=== PATIENT | male | born 1960 | race Hispanic/Latino ===

== ENCOUNTER 2017-10-21 18:30 | Emergency (ER) | payer OTHER ==
[2017-10-21 19:40] LABS: #Basophils 0.1 thou/uL (0.0-0.2); #Eosinphils 0.1 thou/uL (0.0-0.7); #Lymphocytes 1.6 thou/uL (1.20-3.40); #Monocytes 0.3 thou/uL (0.11-0.59); #Neutrophils 3.7 thou/uL (1.40-6.50); %Basophils 1.3 % (0.0-1.0); %Eosinophils 1.1 % (0.0-10.0); %Lymphocytes 27.8 % (21.0-51.0); %Monocytes 4.6 % (0.0-10.0); %Neutrophils 65.2 % (42.0-75.0); Hemoglobin 15.1 g/dL (14.0-18.0); Mean Corpuscular HGB CONC 35.4 g/dL (32.0-36.0); Mean Corpuscular Hemoglobin 31.5 pg (27.0-31.0); Mean Corpuscular Volume 89.1 fL (78.0-98.0); Mean Platelet Volume 9.2 fL (7.4-10.4); Platelet Count 167 thou/uL (130-400); RBC Distribution Width 11.8 % (11.5-14.5); Red Blood Cell (RBC) Count 4.78 mill/uL (4.70-6.10); White Blood Cell (WBC) Count 5.7 thou/uL (4.8-10.8)
[2017-10-21 20:04] LABS: ALT (SGPT) 17 U/L (8-55); AST (SGOT) 18 U/L (5-34); Albumin 4.5 g/dL (3.5-5.0); Alkaline Phosphatase 73 U/L (40-150); Anion Gap 11 mmol/L (10-20); BUN (Urea Nitrogen) 14 mg/dL (8.4-25.7); Bilirubin, Total 0.5 mg/dL (0.2-1.2); CK (CPK) 150 U/L (30-200); Calc. Creatinine Clearance 0 mL/min (70-130); Calcium 9.1 mg/dL (7.8-10.44); Carbon Dioxide 26 mmol/L (22-29); Chloride 107 mmol/L (98-107); Estimated GFR-MDRD 74; Globulin 2.1 g/dL (2.4-3.5); Glucose 95 mg/dL (70-105); Potassium 4.4 mmol/L (3.5-5.1); Protein, Total 6.6 g/dL (6.0-8.3); Sodium 140 mmol/L (136-145)
[2017-10-21 20:09] LABS: CKMB 1.5 ng/mL (0-6.6); Troponin I Less than 0.010 ng/mL (< 0.028)
--- NOTE | 2017-10-21 20:42 | RAD ---
PORTABLE AP CHEST X-RAY: 10/21/2017 HISTORY: Chest pain. FINDINGS: The cardiac silhouette is magnified by projection but stable, compared to prior exam. The pulmonary vasculature is within normal limits. The lungs remain clear. There has been no interval change from the prior exam. IMPRESSION: No acute cardiopulmonary process. POS: [facility]
== END 2017-10-21 20:00 | disposition left against medical advice (07) ==
LOC: ERS 18:30
DX: Z53.21 Procedure and treatment not carried out due to patient leaving prior to being seen by health care provider (principal)
CPT/HCPCS: 36415; 71045; 80053; 82550; 82553; 84484; 85025

== ENCOUNTER 2017-10-21 20:41 | Emergency (ER) | payer OTHER | END 2017-10-21 22:09 | disposition home or self-care (01) | LOC: SCSER 20:41 | DX: I65.29 Occlusion and stenosis of unspecified carotid artery (principal); E04.1 Nontoxic single thyroid nodule; N20.0 Calculus of kidney; K76.0 Fatty (change of) liver, not elsewhere classified | CPT/HCPCS: 99283 ==

== ENCOUNTER 2017-11-11 13:21 | Outpatient (CLI) | payer OTHER ==
[~2017-11-11 13:21] MED LIST: Iopamidol 370 76% 100 ML VIAL ONE
== END 2017-11-11 13:22 | disposition home or self-care (01) ==
LOC: BICCT 13:21
PROVIDERS: ATTEND Family Medicine
DX: I65.21 Occlusion and stenosis of right carotid artery (principal)
CPT/HCPCS: 70498

== ENCOUNTER 2018-08-15 08:56 | Day surgery (SDC) | payer OTHER ==
[2018-08-14 11:46] VITALS: BMI 32.2
--- NOTE | 2018-08-15 00:12 | HP ---
HISTORY OF PRESENT ILLNESS: This is a 57-year-old male _comes in for a screening colonoscopy. The patient has no specific GI symptoms. Bowel movements are regular. No abdominal pain. No hematochezia. ALLERGIES: NONE. MEDICAL ILLNESSES: Hyperlipidemia. SOCIAL HISTORY: The patient does not smoke or drink alcohol. PHYSICAL EXAMINATION: VITAL SIGNS: Pulse is 70, blood pressure 130/80. HEENT: Conjunctivae clear. NECK: Supple. No adenitis or thyromegaly noted. CARDIOVASCULAR: First and second heart sounds heard. LUNGS: Clear to auscultation. ABDOMEN: Soft. No organomegaly. No tenderness. No masses. ADMITTING DIAGNOSIS: A 57-year-old male, comes for a colonoscopy for colon cancer screening. Job ID: [id number] MTDD
[2018-08-15] MEDS ORDERED: Midazolam HCl 2 mg/2 ml Vial ONE (09:25)
[2018-08-15] MEDS ORDERED: PROPOFOL 200 MG/20 ML VIAL ONE (16:35)
[2018-08-15] MEDS ORDERED: Lidocaine 1% PF 5 ML VIAL ONE (16:35)
--- NOTE | 2018-08-15 16:39 | OP ---
DATE OF PROCEDURE: 08/15/2018 PROCEDURE PERFORMED: Colonoscopy. PREOPERATIVE DIAGNOSIS: A 57-year-old male undergoing colonoscopy for colon cancer screening. POSTOPERATIVE DIAGNOSES: 1. Scattered diverticula all the way to the hepatic flexure. 2. Fecal coating in the mucosa of the right colon, washed out. DESCRIPTION OF PROCEDURE: The patient was placed on his left lateral position and was given sedation by Anesthesia Department. A rectal exam was done before the scope was advanced into the rectum. No lesions felt on rectal exam. A [employer]ax video colonoscope was introduced into the rectum and advanced all the way to the cecum. The prep was reasonably good except for some fecal coating over the right colon. Water was easily irrigated and washed out. Withdrawal of scope from the cecum into the ascending colon, no pathology. The hepatic flexure, transverse colon, splenic flexure, descending colon, sigmoid colon showed mild scattered diverticula. Retroflexion of scope in the rectum showed no pathology. DISCHARGE PLANNING: This is a 57-year-old male, came for a colonoscopy for colon cancer screening, underwent colonoscopy and was found to have scattered diverticular disease from sigmoid to hepatic flexure. He did well postprocedure and is being discharged home. DISCHARGE INSTRUCTIONS: 1. The patient is advised to call me if he develops any abdominal pain or hematochezia. 2. High-fiber diet. 3. Repeat colonoscopy in 10 years as he is low risk for colon cancer. Job ID: [id number]
== END 2018-08-15 10:49 | disposition home or self-care (01) ==
LOC: SDC 08:56
PROVIDERS: ATTEND Internal Medicine Gastroenterology
PROC: 0DJD8ZZ Inspection of Lower Intestinal Tract, Via Natural or Artificial Opening Endoscopic (ICD-10-PCS; principal; 2018-08-15)
DX: Z12.11 Encounter for screening for malignant neoplasm of colon (principal); K57.30 Diverticulosis of large intestine without perforation or abscess without bleeding; E78.5 Hyperlipidemia, unspecified; Z79.82 Long term (current) use of aspirin; Z79.899 Other long term (current) drug therapy
CPT/HCPCS: J2001; J2250; J2704

== ENCOUNTER 2020-03-27 19:00 | Outpatient (CLI) | payer OTHER | END 2020-03-27 19:01 | disposition home or self-care (01) | LOC: SLEEPLAB 19:00 | PROVIDERS: ATTEND Family Medicine | DX: G47.33 Obstructive sleep apnea (adult) (pediatric) (principal); R53.83 Other fatigue; R51.9 Headache, unspecified; R06.83 Snoring; E66.9 Obesity, unspecified; G47.10 Hypersomnia, unspecified; G47.00 Insomnia, unspecified; Z68.32 Body mass index [BMI] 32.0-32.9, adult; G47.52 REM sleep behavior disorder | CPT/HCPCS: 95810 ==

== ENCOUNTER 2020-04-24 19:30 | Outpatient (CLI) | payer OTHER | END 2020-04-24 19:31 | disposition home or self-care (01) | LOC: SLEEPLAB 19:30 | PROVIDERS: ATTEND Family Medicine | DX: G47.33 Obstructive sleep apnea (adult) (pediatric) (principal); R51.9 Headache, unspecified; R53.83 Other fatigue; R06.83 Snoring; G47.10 Hypersomnia, unspecified; E66.9 Obesity, unspecified; G47.52 REM sleep behavior disorder; Z68.32 Body mass index [BMI] 32.0-32.9, adult | CPT/HCPCS: 95811 ==

== ENCOUNTER 2022-10-27 12:21 | Observation (INO) | payer OTHER ==
[2022-10-27] MEDS ORDERED: Aspirin Chewable 81 MG TAB ONE (12:59)
[2022-10-27] MEDS ORDERED: Nitroglycerin 2% Ointment 1 INCH/1 GM Packet ONE (12:59)
[2022-10-27 13:19] LABS: #Eosinphils 0.1 thou/uL (0.0-0.7); #Monocytes 0.3 thou/uL (0.11-0.59); #Neutrophils 3.8 thou/uL (1.40-6.50); %Basophils 0.3 % (0.0-1.0); %Eosinophils 1.5 % (0.0-10.0); %Monocytes 5.7 % (0.0-10.0); %Neutrophils 64.3 % (42.0-75.0); Hemoglobin 15.6 g/dL (14.0-18.0); Mean Corpuscular HGB CONC 34.6 g/dL (32.0-36.0); Mean Corpuscular Hemoglobin 30.7 pg (27.0-31.0); Mean Corpuscular Volume 88.8 fl (78.0-98.0); Mean Platelet Volume 11.5 fL (7.4-10.4); Platelet Count 170 10x3/uL (130-400); RBC Distribution Width 12.7 % (11.5-14.5); Red Blood Cell (RBC) Count 5.08 mill/uL (4.70-6.10)
[2022-10-27 13:44] LABS: ALT (SGPT) 18 U/L (8-55); AST (SGOT) 24 U/L (5-34); Albumin 4.6 g/dL (3.5-5.0); Alkaline Phosphatase 71 U/L (40-110); Anion Gap 14 mmol/L (10-20); BUN (Urea Nitrogen) 11 mg/dL (8.4-25.7); Bilirubin, Total 0.7 mg/dL (0.2-1.2); CK (CPK) 99 U/L (30-200); Calc. Creatinine Clearance 0 mL/min (70-130); Calcium 9.2 mg/dL (7.8-10.44); Carbon Dioxide 27 mmol/L (22-29); Chloride 104 mmol/L (98-107); Estimated GFR 81; Globulin 2.5 g/dL (2.4-3.5); Glucose 94 mg/dL (70-105); Lipase 26 U/L (8-78); Protein, Total 7.1 g/dL (6.0-8.3); Sodium 140 mmol/L (136-145)
[2022-10-27] MEDS ORDERED: HYDROcodone/Acetaminophen 5/325 mg Tablet PO PRN (14:19)
[2022-10-27] MEDS ORDERED: Acetaminophen 325 MG TAB PO PRN (14:19)
[2022-10-27 16:45] VITALS: BMI 29.9
[2022-10-27 16:56] LABS: Troponin I Less than 0.010 ng/mL (< 0.028)
[2022-10-27] MEDS ORDERED: Nitroglycerin 0.4 MG TAB (25 Tab Bottle) SL PRN (17:07)
[2022-10-27 19:38] LABS: Troponin I Less than 0.010 ng/mL (< 0.028)
[2022-10-27] MEDS ORDERED: Melatonin 3 MG TAB PO PRN (20:34)
[2022-10-27] MEDS ORDERED: Atorvastatin Calcium 40 MG TAB PO SCH (21:00)
[2022-10-28 05:56] LABS: Troponin I Less than 0.010 ng/mL (< 0.028)
[2022-10-28] MEDS ORDERED: Aspirin 81 mg Enteric Coated Tablet PO SCH (09:00)
[2022-10-28 12:08] VITALS: BP 122/79; TEMP 98.2
== END 2022-10-28 14:35 | disposition home or self-care (01) ==
LOC: ERS 12:21 → 2SW 16:00
PROVIDERS: ADMIT Internal Medicine; ATTEND Internal Medicine
DX: R07.89 Other chest pain (principal); E78.5 Hyperlipidemia, unspecified; R11.0 Nausea; Z79.82 Long term (current) use of aspirin; Z79.899 Other long term (current) drug therapy
CPT/HCPCS: 36415; 71045; 80053; 82550; 83690; 83880; 84484; 85025; 93005; 93017; 94760; G0378

== ENCOUNTER 2023-09-18 21:39 | Inpatient (IN) | payer OTHER ==
[~2023-09-18 21:39] MED LIST changes: -Iopamidol 370 76% 100 ML VIAL ONE; +Iopamidol-370 76% 500 ML MDV (1 ML CHARGE) ONE
[2023-09-18 22:33] LABS: #Basophils Less than 0.03 10x3/uL (0.0-0.2); %Basophils 0.3 % (0.0-1.0); %Eosinophils 1.6 % (0.0-10.0); %Lymphocytes 27.9 % (21.0-51.0); %Monocytes 7.2 % (0.0-10.0); %Neutrophils 62.7 % (42.0-75.0); Hematocrit 42.6 % (42.0-52.0); Hemoglobin 14.7 g/dL (14.0-18.0); Mean Corpuscular HGB CONC 34.5 g/dL (32.0-36.0); Mean Corpuscular Hemoglobin 30.4 pg (27.0-31.0); Mean Corpuscular Volume 88.2 fL (78.0-98.0); Mean Platelet Volume 11.9 fL (7.4-10.4); Platelet Count 170 10x3/uL (130-400); RBC Distribution Width 12.6 % (11.5-14.5); Red Blood Cell (RBC) Count 4.83 mill/uL (4.70-6.10)
[2023-09-18 22:51] LABS: ALT (SGPT) 17 U/L (8-55); AST (SGOT) 19 U/L (5-34); Albumin 3.9 g/dL (3.5-5.0); Alkaline Phosphatase 70 U/L (40-110); Anion Gap 14 mmol/L (10-20); BUN (Urea Nitrogen) 19 mg/dL (8.4-25.7); Bilirubin, Total 0.3 mg/dL (0.2-1.2); CK (CPK) 115 U/L (30-200); Calc. Creatinine Clearance 0 mL/min (70-130); Calcium 9.1 mg/dL (7.8-10.44); Carbon Dioxide 23 mmol/L (22-29); Chloride 106 mmol/L (98-107); Estimated GFR 65; Globulin 2.5 g/dL (2.4-3.5); Glucose 111 mg/dL (70-105); Lipase 20 U/L (8-78); Potassium 4.2 mmol/L (3.5-5.1); Protein, Total 6.4 g/dL (6.0-8.3); Sodium 139 mmol/L (136-145)
[2023-09-18 22:56] LABS: Troponin I 0.144 ng/mL (< 0.028)
[2023-09-18] MEDS ORDERED: Aspirin Chewable 81 MG TAB ONE (23:12)
[2023-09-19 00:48] LABS: Bacteria/HPF None Seen HPF (None Seen); Bilirubin Negative (Negative); Blood, Urine Negative (Negative); CAUTI Indications for Culture Pelvic or flank pain; Clarity Clear (Clear); Glucose, Urine (Dipstick) Normal (Negative); Ketone, Urine Negative (Negative); Leukocyte Negative Leu/uL (Negative); Nitrite Negative (Negative); Protein, Urine (Dipstick) Negative (Neg-Trace); RBC/HPF 0-3 HPF (0-3); Specific Gravity, Urine 1.017 (1.002-1.036); Squamous Epithelial None Seen HPF (0-3); Urobilinogen Normal mg/dL (Less than 2); WBC/HPF 0-3 HPF (0-3)
[2023-09-19 00:50] LABS: Urine Culture Reflex No No
[2023-09-19] MEDS ORDERED: hydrALAZINE 10 MG TAB ONE (01:01)
[2023-09-19] MEDS ORDERED: hydrALAZINE 25 MG TAB ONE (01:05)
[2023-09-19] MEDS ORDERED: Nitroglycerin 0.4 MG TAB (25 Tab Bottle) SL PRN (01:16)
[2023-09-19] MEDS ORDERED: Acetaminophen 650 MG Suppository PR PRN (01:16)
[2023-09-19 03:30] LABS: Critical Call Chem Troponin I NUR.LK7@0330; Troponin I 0.205 ng/mL (< 0.028)
[2023-09-19] MEDS ORDERED: Enoxaparin 100 MG (1 mL) SYRINGE ONE (04:24)
[2023-09-19] MEDS: Enoxaparin 100 MG (1 mL) SYRINGE SC SCH ×2 (04:39→18:02)
[2023-09-19 04:45] LABS: A1c 135.039 g/dL; Hb (HGBA1c) 4254.3542 umol/L; Hemoglobin A1c 5.1 % (4.0-6.0)
[2023-09-19] MEDS: Communication Order-Pharmacy FS SCH (04:45)
[2023-09-19 04:48] LABS: Anion Gap 13 mmol/L (10-20); BUN (Urea Nitrogen) 20 mg/dL (8.4-25.7); Calc. Creatinine Clearance 88 mL/min (70-130); Calcium 9.3 mg/dL (7.8-10.44); Carbon Dioxide 24 mmol/L (22-29); Cardiac Risk 3.6 (Less than 4.5); Chloride 108 mmol/L (98-107); Cholesterol 158 mg/dl (< 200 Desired); Estimated GFR 69; Glucose 104 mg/dL (70-105); HDL Cholesterol 44 mg/dL (>60 Neg Risk); LDL Cholesterol, Calculated 89 mg/dL; Magnesium 2.1 mg/dL (1.6-2.6); Potassium 4.4 mmol/L (3.5-5.1); Sodium 141 mmol/L (136-145); Triglycerides 125 mg/dL (Less than 150)
[2023-09-19 05:37] LABS: Hematocrit 42.6 % (42.0-52.0); Hemoglobin 14.4 g/dL (14.0-18.0); Platelet Count 162 10x3/uL (130-400)
[2023-09-19 06:08] LABS: Critical Call Chem Troponin I NUR.DW5@0608; Troponin I 0.222 ng/mL (< 0.028)
[2023-09-19] MEDS ORDERED: Enoxaparin 40 MG (0.4 mL) SYRINGE SC SCH (09:00)
[2023-09-19] MEDS ORDERED: Aspirin Chewable 81 MG TAB ONE (09:42)
[2023-09-19] MEDS ORDERED: Famotidine 20 MG TAB ONE (09:42)
[2023-09-19] MEDS ORDERED: Polyethylene Glycol 3350 17 GM Packet ONE (09:46)
[2023-09-19] MEDS: Famotidine 20 MG TAB PO SCH (10:09)
[2023-09-19] MEDS: Aspirin Chewable 81 MG TAB PO SCH (10:09)
[2023-09-19] MEDS: Polyethylene Glycol 3350 17 GM Packet PO SCH (10:09)
[2023-09-19] MEDS: Acetaminophen 500 MG TAB PO SCH (14:05)
[2023-09-19] MEDS ORDERED: Acetaminophen 500 MG TAB ONE (14:06)
[2023-09-19] MEDS ORDERED: Nitroglycerin 0.4 MG TAB 1 EACH ONE (16:03)
[2023-09-19] MEDS ORDERED: Mag-Al 1200 mg/1200 mg/30 ML UDCUP ONE (16:59)
[2023-09-19] MEDS ORDERED: Nitroglycerin 2% Ointment 1 INCH/1 GM Packet ONE (17:00)
[2023-09-19] MEDS: Mag-Al 1200 mg/1200 mg/30 ML UDCUP PO SCH (17:05)
[2023-09-19] MEDS: Nitroglycerin 2% Ointment 1 INCH/1 GM Packet TOP SCH ×2 (17:05→22:09)
[2023-09-19] MEDS ORDERED: Enoxaparin 100 MG (1 mL) SYRINGE SC SCH (21:00)
[2023-09-19] MEDS: Atorvastatin Calcium 40 MG TAB PO SCH (22:10)
[2023-09-20 04:50] LABS: #Basophils 0.03 10x3/uL (0.0-0.2); %Basophils 0.4 % (0.0-1.0); %Eosinophils 1.5 % (0.0-10.0); %Lymphocytes 29.2 % (21.0-51.0); %Monocytes 6.8 % (0.0-10.0); %Neutrophils 61.8 % (42.0-75.0); Hematocrit 46.2 % (42.0-52.0); Hemoglobin 15.8 g/dL (14.0-18.0); Mean Corpuscular HGB CONC 34.2 g/dL (32.0-36.0); Mean Corpuscular Hemoglobin 30.4 pg (27.0-31.0); Mean Corpuscular Volume 88.8 fL (78.0-98.0); Mean Platelet Volume 11.7 fL (7.4-10.4); Platelet Count 181 10x3/uL (130-400); RBC Distribution Width 12.8 % (11.5-14.5)
[2023-09-20] MEDS: Acetaminophen 325 MG TAB PO PRN (05:06)
[2023-09-20 05:12] LABS: Anion Gap 14 mmol/L (10-20); BUN (Urea Nitrogen) 12 mg/dL (8.4-25.7); Calc. Creatinine Clearance 106 mL/min (70-130); Calcium 9.3 mg/dL (7.8-10.44); Carbon Dioxide 27 mmol/L (22-29); Chloride 106 mmol/L (98-107); Estimated GFR 85; Glucose 101 mg/dL (70-105); Potassium 4.3 mmol/L (3.5-5.1); Sodium 143 mmol/L (136-145)
[2023-09-20] MEDS ORDERED: Nitroglycerin 50 MG/250 ML BOT 250 ML ONE (06:18)
[2023-09-20] MEDS ORDERED: Adenosine 6 mg (2 mL) VIAL ONE (06:18)
[2023-09-20] MEDS ORDERED: Heparin 10,000 UNITS/ 10 ML VIAL ONE ×2 (06:18→08:32)
[2023-09-20] MEDS ORDERED: fentaNYL 50 mcg/mL 1 mL Vial ONE ×3 (07:12→12:55)
[2023-09-20] MEDS ORDERED: Midazolam HCl 2 mg/2 ml Vial ONE ×2 (07:13→07:20)
[2023-09-20] MEDS ORDERED: Atropine Sulfate 1 mg/1 ml Vial ONE (07:37)
[2023-09-20] MEDS ORDERED: TICAGRELOR 90 MG TABLET ONE (08:23)
[2023-09-20] MEDS: Lisinopril 10 MG TAB PO SCH (17:36)
[2023-09-20 18:34] VITALS: BMI 32.1
[2023-09-20 19:37] VITALS: BP 183/88; TEMP 98.8
[2023-09-20] MEDS: TICAGRELOR 90 MG TABLET PO SCH (20:06)
[2023-09-21] MEDS ORDERED: Lisinopril 10 MG TAB PO SCH (09:00)
== END 2023-09-20 20:25 | disposition home or self-care (01) | DRG 322 ==
LOC: ERS 21:39 → ERHOLD 09-19 01:14 → 2SW 09-19 17:30 → OBSVTOIN 09-20 12:24
PROVIDERS: ADMIT Student in an Organized Health Care Education/Training Program; ATTEND Internal Medicine
PROC: 4A023N7 Measurement of Cardiac Sampling and Pressure, Left Heart, Percutaneous Approach (ICD-10-PCS; principal; 2023-09-20)
PROC: 027034Z Dilation of Coronary Artery, One Artery with Drug-eluting Intraluminal Device, Percutaneous Approach (ICD-10-PCS; 2023-09-20)
PROC: B2151ZZ Fluoroscopy of Left Heart using Low Osmolar Contrast (ICD-10-PCS; 2023-09-20)
PROC: B2111ZZ Fluoroscopy of Multiple Coronary Arteries using Low Osmolar Contrast (ICD-10-PCS; 2023-09-20)
DX: I21.4 Non-ST elevation (NSTEMI) myocardial infarction (principal); I10 Essential (primary) hypertension; I16.0 Hypertensive urgency; E78.5 Hyperlipidemia, unspecified; G47.33 Obstructive sleep apnea (adult) (pediatric); F41.9 Anxiety disorder, unspecified; K57.90 Diverticulosis of intestine, part unspecified, without perforation or abscess without bleeding; Z82.49 Family history of ischemic heart disease and other diseases of the circulatory system; K76.0 Fatty (change of) liver, not elsewhere classified; Z79.82 Long term (current) use of aspirin; Z79.899 Other long term (current) drug therapy
CPT/HCPCS: 36415; 71045; 74177; 80048; 80053; 80061; 81001; 82550; 83036; 83690; 83735; 83880; 84443; 84484; 85014; 85018; 85025; 85049; 85347; 93005; 93010; J0153; J0461; J1644; J1650; J2250; J3010